=== PATIENT | female | born 1990 | race Caucasian/White ===

== ENCOUNTER 2024-03-22 18:29 | Emergency (ER) | payer MEDICAID, OTHER ==
[~2024-03-22] VITALS: Ht 160 cm; Wt 56.9 kg
[2024-03-22] MEDS: LIDOCAINE 1% HCL (LOCAL ANESTH.) INJ 20ML MDV IJ ONE (19:05)
[2024-03-22] MEDS: LIDOCAINE 1% HCL (LOCAL ANESTH.) INJ 20ML MDV ONE (19:05)
[2024-03-22] MEDS ORDERED: BAC09TP TOP (19:24)
[2024-03-22] MEDS ORDERED: AUG875T PO (19:24)
[2024-03-22] MEDS ORDERED: IBUP-1456 PO (19:24)
[2024-03-22] MEDS: TETANUS-DIPTH-ACEL PERTUSSIS 0.5ML SYR Tdap IM ONE (19:33)
[2024-03-22] MEDS: BACITRACIN TOP OINT 1 UD PKG TOP ONE (19:34)
[2024-03-22 20:15] VITALS: BP 146/91; PULSE 101; RESP 18; TEMP 98.1; O2SAT 99
== END 2024-03-22 20:03 | disposition home or self-care (01) ==
LOC: ER 18:29
DX: S61.412A Laceration without foreign body of left hand, initial encounter (principal); Z88.2 Allergy status to sulfonamides; Z88.1 Allergy status to other antibiotic agents; Z88.8 Allergy status to other drugs, medicaments and biological substances; Z79.899 Other long term (current) drug therapy; W54.0XXA Bitten by dog, initial encounter; Y93.89 Activity, other specified; Y92.89 Other specified places as the place of occurrence of the external cause; Y99.8 Other external cause status
CPT/HCPCS: 12002; 73130; 90471; 90715; 99283; J2001

== ENCOUNTER 2024-04-04 10:20 | Emergency (ER) | payer MEDICAID ==
[~2024-04-04] VITALS: Ht 154.9 cm; Wt 58.0 kg
[~2024-04-04 10:20] MED LIST: AUG875T PO; BAC09TP TOP; IBUP-1456 PO
[2024-04-04 11:55] VITALS: BP 118/70; PULSE 92; RESP 16; TEMP 98.5; O2SAT 97
== END 2024-04-04 12:00 | disposition home or self-care (01) ==
LOC: ER 10:20
DX: S61.412D Laceration without foreign body of left hand, subsequent encounter (principal); Z88.1 Allergy status to other antibiotic agents; Z88.2 Allergy status to sulfonamides; Z79.1 Long term (current) use of non-steroidal anti-inflammatories (NSAID); Z79.899 Other long term (current) drug therapy; X58.XXXD Exposure to other specified factors, subsequent encounter

== ENCOUNTER 2024-04-11 07:21 | Emergency (ER) | payer MEDICAID ==
[~2024-04-11] VITALS: Ht 154.9 cm; Wt 56.0 kg
[2024-04-11 07:45] VITALS: BP 109/70; PULSE 89; RESP 16; TEMP 98.2; O2SAT 97
== END 2024-04-11 07:57 | disposition home or self-care (01) ==
LOC: ER 07:21
DX: S61.412D Laceration without foreign body of left hand, subsequent encounter (principal); Z88.1 Allergy status to other antibiotic agents; Z88.2 Allergy status to sulfonamides; Z79.899 Other long term (current) drug therapy; Z79.1 Long term (current) use of non-steroidal anti-inflammatories (NSAID); X58.XXXD Exposure to other specified factors, subsequent encounter